=== PATIENT | female | born 1980 | race Caucasian/White ===

== ENCOUNTER 2017-05-13 05:09 | Emergency (ER) | payer MEDICAID, OTHER ==
[2017-05-13] MEDS ORDERED: Sodium Chloride 0.9% 1,000 ML IV ONE ×3 (05:42→13:22)
[2017-05-13] MEDS ORDERED: Morphine Sulfate 2 mg/mL 1mL Syr IVP ONE (05:42)
--- NOTE | 2017-05-13 05:49 | ED Physician Chart ---
ED Chief Complaint/HPI - Patient Information Date Seen:: 05/13/17 Time Seen:: 05:10 Chief Complaint:: Abdominal Pain History of Present Illness:: onset x 3 days of intermittent, diffuse, crampy abdominal pain, fever, and nausea; pt denies trauma, H/As, S/T, neck pain, C/P, cough, SOB, A/V/D/C, chills , VB, VD, or urinary s/s Allergies:: Allergies Allergy/AdvReac Type Severity Reaction Status Date / Time Penicillins [PCN] Allergy Verified 12/22/15 16:42 Vitals:: Vital Signs - 8 hr 05/13/17 05:10 Temp 99.8 F HR 126 RR 20 BP 119/77 O2 Sat % 98 Historian:: Patient Review:: Nurse's Note Reviewed <Christ Child - Last Filed: 05/13/17 05:44> - Patient Information Allergies:: Allergies Allergy/AdvReac Type Severity Reaction Status Date / Time Penicillins [PCN] Allergy Verified 12/22/15 16:42 Vitals:: Vital Signs - 8 hr 05/13/17 05/13/17 05:10 07:18 Temp 99.8 F 99.0 F HR 126 117 RR 20 18 BP 119/77 106/57 O2 Sat % 98 98 <Jonna Berg - Last Filed: 07/16/17 23:51> ED Review of Systems - Review of Systems General/Constitutional: Fever, No chills, No weight loss, No weakness, No diaphoresis, No edema, No loss of appetite Skin: No skin lesions, No rash, No bruising Head: No headache, No light-headedness Eyes: No loss of vision, No pain, No diplopia ENT: No earache, No nasal drainage, No sore throat, No tinnitus Neck: No neck pain, No swelling, No thyromegaly, No stiffness, No mass noted Cardio Vascular: No chest pain, No palpitations, No PND, No orthopnea, No edema Pulmonary: No SOB, No cough, No sputum, No wheezing GI: Nausea, Vomiting, Diarrhea, Pain, No melena, No hematochezia, No constipation, No hematemesis G/U: No dysuria, No frequency, No hematuria, No nacturia Oncology Nurse: No vaginal discharge, No abnormal vaginal bleed, No contraction Musculoskeletal: No bone or joint pain, No back pain, No muscle pain Endocrine: No polyuria, No polydipsia Psychiatric: No prior psych history, No depression, No anxiety, No suicidal ideation, No homicidal ideation, No auditory hallucination, No visual hallucination Hematopoietic: No bruising, No lymphadenopathy Allergic/Immuno: No urticaria, No angioedema Neurological: No syncope, No focal symptoms, No weakness, No paresthesia, No headache, No seizure, No dizziness, No confusion, No vertigo <Christ Child - Last Filed: 05/13/17 05:44> ED Past Medical History - Past Medical History Obtainable: Yes Past Medical History: No significant medical hx Family History: None Social History: Non Smoker, No Alcohol, No Drug Use, Surgical History: Psychiatricy History: None Medication: Reviewed <Christ Child - Last Filed: 05/13/17 05:44> Family Medical History - Family Member Father Hx Family Diabetes: Yes <Jonna Berg - Last Filed: 07/16/17 23:51> ED Physical Exam - Physical Examination General/Constitutional: Awake, Well-developed, well-nourished, Alert, No distress, GCS 15, Non-toxic appearing, Ambulatory Head: Atraumatic Eyes: Lids, conjuctiva normal, PERRL, EOMI Skin: Nl inspection, No rash, No skin lesions, No ecchymosis, Well hydrated, No lymphadenopathy ENMT: External ears, nose nl, TM canals nl, Nasal exam nl, Lips, teeth, gums nl , Oropharynx nl, Tonsils nl Neck: Nontender, Full ROM w/o pain, No JVD, No nuchal rigidity, No bruit, No mass, No stridor Respiratory: Nl effort/Exclusion, Clear to Auscultation, No Wheeze/Rhonchi/Rales Cardio Vascular: RRR, No murmur, gallop, rubs, NL S1 S2, Carotid/Femoral/Distal pulses equal bilaterally GI: No tenderness/rebounding/guarding, No organomegaly, No hernia, Normal BS's, Nondistended, No mass/bruits, No McBurney tenderness : No CVA tenderness Extremities: No tenderness or effusion, Full ROM, normal strength in all extremities, No edema, Normal digits & nails Neuro/Psych: Alert/oriented, DTR's symmetric, Normal sensory exam, Normal motor strength, Judgement/insight normal, Mood normal, Normal gait, No focal deficits Misc: Normal back, No paraspinal tenderness <Christ Child - Last Filed: 05/13/17 05:44> ED Labs/Radiology/EKG Results - Lab Results Results: Laboratory Tests 05/13/17 05/13/17 05/13/17 06:01 06:01 06:01 WBC 13.5 H RBC 4.27 Hgb 12.7 Hct 38.0 L MCV 89.0 MCH 29.7 MCHC Differential 33.4 RDW 12.3 Plt Count 229 MPV 8.2 Band Neutrophils % 7 Neutrophils (Manual) 72 Lymphocytes 13 L Monocytes 6 Eosinophils 2 Sodium 127 L Potassium 3.5 Chloride 99 Carbon Dioxide 23.6 Anion Gap 7.9 BUN 6 L Creatinine 0.6 Est GFR ( Amer) > 60.0 Est GFR (Non-Af Amer) > 60.0 BUN/Creatinine Ratio 10.0 Glucose 121 H Whole Bld Lactic Acid Calcium 8.9 Total Bilirubin 0.4 AST 18 ALT 33 Alkaline Phosphatase 64 Troponin I < 0.01 L Total Protein 6.8 Albumin 3.7 Globulin 3.1 Albumin/Globulin Ratio 1.2 Amylase 29 Lipase 18 Urine Source Urine Color Urine Clarity Urine pH Ur Specific [place] Urine Protein Urine Glucose (UA) Urine Ketones Urine Blood Urine Nitrate Urine Bilirubin Urine Urobilinogen Ur Leukocyte Esterase Urine RBC Urine WBC Ur Epithelial Cells Urine Bacteria Urine Test 05/13/17 05/13/17 05/13/17 06:01 07:10 07:10 WBC RBC Hgb Hct MCV MCH MCHC Differential RDW Plt Count MPV Band Neutrophils % Neutrophils (Manual) Lymphocytes Monocytes Eosinophils Sodium Potassium Chloride Carbon Dioxide Anion Gap BUN Creatinine Est GFR ( Amer) Est GFR (Non-Af Amer) BUN/Creatinine Ratio Glucose Whole Bld Lactic Acid 0.71 Calcium Total Bilirubin AST ALT Alkaline Phosphatase Troponin I Total Protein Albumin Globulin Albumin/Globulin Ratio Amylase Lipase Urine Source RANDOM Urine Color YELLOW Urine Clarity CLEAR Urine pH 7.5 Ur Specific [place] 1.015 Urine Protein TRACE Urine Glucose (UA) NEGATIVE Urine Ketones NEGATIVE Urine Blood SMALL H Urine Nitrate NEGATIVE Urine Bilirubin NEGATIVE Urine Urobilinogen 0.2 Ur Leukocyte Esterase NEGATIVE Urine RBC 5-10 H Urine WBC 2-5 Ur Epithelial Cells FEW Urine Bacteria 1+ H Urine Test NEGATIVE <Jonna Berg - Last Filed: 07/16/17 23:51> ED Septic Shock - . Is Septic Shock (SBP<90, OR Lactate>4 mmol\L) present?: No - <6hrs of presentation: Vital Signs: Vital Signs - 8 hr 05/13/17 05:10 Temp 99.8 F HR 126 RR 20 BP 119/77 O2 Sat % 98 <Christ Child - Last Filed: 05/13/17 05:44> - . Is Septic Shock (SBP<90, OR Lactate>4 mmol\L) present?: No - <6hrs of presentation: Vital Signs: Vital Signs - 8 hr 05/13/17 05/13/17 05:10 07:18 Temp 99.8 F 99.0 F HR 126 117 RR 20 18 BP 119/77 106/57 O2 Sat % 98 98 <Jonna Berg - Last Filed: 07/16/17 23:51> ED Reassessment (Disposition) - Reassessment Reassessment:: CT abdomen/pelvis showed multiple nonobstructive left renal calculi UA no evidence of UTI Leukocytosis Plans: Flagyl IV Levaquin IV Toradol IV NS 1L IV bolus D/c home Levaquin 500mg qd Tamsulosin 0.4mg qd F/u PCP for urology referral Reassessment Condition:: Improved - Patient Disposition Discharge/Transfer:: Home <Jonna Berg - Last Filed: 07/16/17 23:51> ED Discharge Plan <Christ Child - Last Filed: 05/13/17 05:44> <Jonna Berg - Last Filed: 07/16/17 23:51> - Patient Disposition Admit/Discharge/Transfer: PT DISCHARGED HOME Condition at Disposition: Improved Prescriptions: Levofloxacin [Levaquin] 500 mg PO DAILY #10 tab Tamsulosin [Flomax] 0.4 mg PO DAILY #30 cap Instructions: Kidney Stones, [id number], Urine Strainer, Diet for Kidney Stones
[2017-05-13] MEDS ORDERED: Morphine Sulfate 2 mg/mL 1mL Syr ONE (06:11)
[2017-05-13 06:16] LABS: MEAN PLATELET VOLUME 8.2 fl
[2017-05-13 06:21] LABS: HEMOGLOBIN 12.7 gm/dL (12-16); MEAN CORPUSCULAR HEMOGLOBIN 29.7 pg (27.0-31.0); MEAN CORPUSCULAR HGB CONC 33.4 pg (28.0-36.0); PLATELET COUNT 229 Th/cmm (150-400); RED BLOOD COUNT 4.27 Mil/cmm (3.80-5.10); RED CELL DISTRIBUTION WIDTH 12.3 % (11.5-20.0)
[2017-05-13 06:22] LABS: WHITE BLOOD COUNT 13.5 Th/cmm (4.8-10.8)
[2017-05-13 06:33] LABS: ALB/GLOB RATIO 1.2 (1.0-1.8); ALBUMIN 3.7 gm/dL (3.7-5.3); ALKALINE PHOSPHATASE 64 U/L (34-104); AMYLASE SERUM 29 U/L (29-103); ANION GAP 7.9 (7.0-16.0); BILIRUBIN,TOTAL 0.4 mg/dL (0.3-1.0); BUN - UREA NITROGEN 6 mg/dL (7-25); CALCIUM SERUM 8.9 mg/dL (8.6-10.3); CARBON DIOXIDE 23.6 mEq/L (21.0-31.0); CHLORIDE 99 mEq/L (98-107); CREATININE - SERUM 0.6 mg/dL (0.6-1.2); GFR AFRICAN-AMERICAN > 60.0 ml/min (>90); GFR NON AFRICAN-AMERICAN > 60.0 ml/min; GLUCOSE 121 mg/dL (70-105); LIPASE 18 U/L (11-82); POTASSIUM SERUM 3.5 mEq/L (3.5-5.1); SGOT 18 U/L (13-39); SGPT/ALT 33 U/L (7-52); SODIUM SERUM 127 mEq/L (136-145); TOTAL CELLS COUNTED 100; TOTAL PROTEIN,SERUM 6.8 gm/dL (6.0-8.3)
[2017-05-13 06:34] LABS: BAND NEUTROPHILE 7 % (0-10); EOSINOPHIL 2 % (0-5); LYMPHOCYTE 13 % (20-50); MONOCYTE 6 % (2-10); NEUTROPHILS 72 % (40-80)
[2017-05-13 07:17] LABS: URINE MICROSCOPIC INDICATED? YES; URINE SOURCE RANDOM
[2017-05-13 07:18] LABS: URINE BILIRUBIN NEGATIVE (NEGATIVE); URINE BLOOD SMALL (NEGATIVE); URINE GLUCOSE (UA) NEGATIVE (NEGATIVE); URINE KETONE NEGATIVE (NEGATIVE); URINE LEUKOCYTE ESTERASE NEGATIVE (NEGATIVE); URINE NITRATE NEGATIVE (NEGATIVE); URINE PH 7.5 (4.6 - 8.0); URINE PROTEIN TRACE mg/dL (NEGATIVE); URINE UROBILINOGEN 0.2 E.U./dL (0.2 - 1.0)
[2017-05-13 07:22] LABS: URINE COLOR YELLOW
[2017-05-13 07:23] LABS: URINE CLARITY CLEAR (CLEAR)
[2017-05-13] MEDS ORDERED: metroNIDAZOLE 500mg/NS 100mL 500 MG/100 ML BAG IV ONE ×2 (07:41→07:43)
[2017-05-13 08:07] LABS: URINE BACTERIA 1+ /hpf (NONE SEEN); URINE EPITHELIAL CELLS FEW /lpf (FEW)
--- NOTE | 2017-05-13 08:32 | Diagnostic Imaging Report ---
CT abdomen and pelvis without intravenous contrast Indication: Abdominal pain Comparison: None, Technique: Axial images were obtained from the lung bases to the bilateral proximal femurs without IV contrast. Coronal reconstructions were made. total DLP: [id number], CTDI12.1 FINDINGS: Hypoventilatory and atelectatic changes of the lung bases are noted. Assessment of the solid organs is limited due to lack of IV contrast. No evidence of focal hepatic lesions. No radiopaque gallstones identified. No focal splenic lesions. No focal pancreatic lesions. No focal adrenal lesions. There is mild enlargement of the left kidney with perirenal inflammatory change and trace surrounding fluid. Multiple small left renal stones are noted measuring up to 3 mm. There is mild left hydronephrosis. No radiopaque ureteral stones are identified. Mild urinary bladder wall thickening is noted. Slight right adnexal fullness is noted. Moderate stool is seen throughout the colon, greatest within the cecum. The appendix is not well-visualized. Small amount of free fluid is seen within the pelvis. The osseous structures demonstrate no acute abnormalities. IMPRESSION: Mild enlargement of the left kidney with mild left hydronephrosis and left perinephric inflammatory changes and trace surrounding free fluid. Multiple nonobstructive left renal calculi are noted. No radiopaque obstructing ureteral calculi are noted. Findings may be due to recent passed urinary tract stones or possible infectious/inflammatory process and pyelonephritis. Clinical correlation is recommended. Mild urinary bladder wall thickening. Again clinical correlation is recommended as infectious inflammatory process cannot be excluded. Moderate amount of stool greatest within the cecum. Right adnexal fullness, if indicated ultrasound would further clarify Small amount of free fluid. The appendix was not well-visualized.
[2017-05-13] MEDS ORDERED: Levofloxacin 500mg/100mL 500 MG/100 ML BAG IV ONE ×2 (09:58→10:04)
== END 2017-05-13 14:24 | disposition home or self-care (01) ==
LOC: ER 05:09
DX: R10.9 Unspecified abdominal pain (principal)
CPT/HCPCS: 99285; 96365; 96367; 96375; 74176; 84484; 83605; 85007; 85027; 85025; 81001; 82150; 81025; 83690; 80053; 87040; C9113; J2270; J1885; J2405; J1956; 90799; J7030

== ENCOUNTER 2018-01-26 13:54 | Emergency (ER) | payer OTHER ==
--- NOTE | 2018-01-26 14:26 | ED Physician Chart ---
ED Chief Complaint/HPI - Patient Information Date Seen:: 01/26/18 Time Seen:: 14:10 Chief Complaint:: facial rash History of Present Illness:: 3 days ago patient felt tingling superior to the lateral side of her right upper lip. She then developed a rash. Patient's had cold sores in the past but not this severe. Allergies:: Allergies Allergy/AdvReac Type Severity Reaction Status Date / Time Penicillins [PCN] Allergy Verified 01/26/18 14:05 Vitals:: Vital Signs - 8 hr 01/26/18 14:05 Temp 98.8 F HR 109 RR 18 BP 122/77 O2 Sat % 98 Historian:: Patient Review:: Nurse's Note Reviewed ED Review of Systems - Review of Systems General/Constitutional: No fever, No chills Skin: Rash Head: No headache Eyes: No loss of vision ENT: No earache Neck: No neck pain, No swelling Cardio Vascular: No chest pain, No palpitations Pulmonary: No SOB GI: No nausea, No vomiting, No diarrhea G/U: No dysuria Musculoskeletal: No bone or joint pain, No back pain, No muscle pain Endocrine: No polyuria, No polydipsia Psychiatric: No prior psych history Hematopoietic: No bruising, No lymphadenopathy Allergic/Immuno: No urticaria, No angioedema ED Past Medical History - Past Medical History Past Medical History: No significant medical hx Family History: None Social History: Non Smoker, No Alcohol Surgical History: Psychiatricy History: None Medication: None Family Medical History - Family Member Father Hx Family Diabetes: Yes ED Physical Exam - Physical Examination General/Constitutional: Well-developed, well-nourished, Alert Head: Atraumatic Eyes: Lids, conjuctiva normal, PERRL Other Skin comments:: Crop of about 15 1 to 1 1/2 mm crusting de-roof vesicles superior to right coronary mouth; rash has a diameter of about 1 cm ENMT: External ears, nose nl, TM canals nl, Nasal exam nl, Lips, teeth, gums nl Neck: No nuchal rigidity Respiratory: Nl effort/Exclusion, Clear to Auscultation Cardio Vascular: RRR, No murmur, gallop, rubs GI: No tenderness/rebounding/guarding, No organomegaly, No hernia, Normal BS's, Nondistended, No mass/bruits : No CVA tenderness Extremities: No edema Neuro/Psych: No focal deficits ED Assessment - Assessment General Assessment: 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 Since the lesions are already crusting I told the patient it is very doubtful that antiviral medication will make the lesions heal faster now I did prescribed acyclovir 400 mg #30 to take 1 4 times a day but suggested she wait until the next outbreak of cold sores to take it and to start it when she first feels the tingling sensation before the lesions appear. I suggested applying bacitracin to her current lesions to keep the tissue moist so that healing can occur faster. ED Septic Shock - . Is Septic Shock (SBP<90, OR Lactate>4 mmol\L) present?: No - <6hrs of presentation: Vital Signs: Vital Signs - 8 hr 01/26/18 14:05 Temp 98.8 F HR 109 RR 18 BP 122/77 O2 Sat % 98 ED Reassessment (Disposition) - Reassessment Reassessment Condition:: Unchanged - Diagnosis Diagnosis:: Herpes simplex type I - Aftercare/Follow up Instructions Aftercare/Follow-Up Instructions:: Refer to Discharge Instructions Medication Prescribed:: Celebrex 400 mg #30 to take 14 times a day as necessary for cold sores. - Patient Disposition Discharge/Transfer:: Home Condition at Disposition:: Stable, Unchanged
== END 2018-01-26 14:40 | disposition home or self-care (01) ==
LOC: ER 13:54
DX: B00.1 Herpesviral vesicular dermatitis (principal); R21 Rash and other nonspecific skin eruption; Z88.0 Allergy status to penicillin; Z98.890 Other specified postprocedural states
CPT/HCPCS: Z7502